=== PATIENT | male | born 1945 | race Caucasian/White ===

== ENCOUNTER → 2022-02-12 09:55 | Outpatient (BNVA) | payer MEDICARE, MEDICAID, SELFPAY | PROVIDERS: PCP Family Medicine Geriatric Medicine; Visit Provider Psychiatry & Neurology Neurology | DX: G91.2 (Idiopathic) normal pressure hydrocephalus (principal); R26.89 Other abnormalities of gait and mobility; F09 Unspecified mental disorder due to known physiological condition; Z98.2 Presence of cerebrospinal fluid drainage device | CPT/HCPCS: 99202 ==